=== PATIENT | female | born 1940 | race Caucasian/White ===

== ENCOUNTER → 2016-10-23 | Outpatient (CLI) | payer MEDICARE, BC ==
[~2016-10-23] VITALS: Ht 167.6 cm; Wt 73.0 kg
[~2016-10-23] MED LIST: ALDACTONE 25MG25 M1 PO; ALDACTONE25 MG PO; ASPIRIN 32325 MG/TAB PO; CAPOTEN 12.512.5 MG PO; CARVEDILOL3.125 MG PO; CLARITIN 1010 MG/TAB PO; COREG 6.256.25 MG/TA PO; DIGOXIN0.125 MG PO; EPLERENONE25 MG PO; LASIX 20MG TABL20 MG PO; LASIX20 MG PO; LIDODERM 5% PATC1 EA TP; LISINOPRIL/HCTZ1 TA2 PO; LISINOPRIL5 MG PO; LOVASTATIN10 MG PO; LOVASTATIN20 MG PO; MICRO-K8 MEQ PO; MOTRIN 600600 MG/TAB PO; MOTRIN 800800 MG/TAB PO; NO HOME MEDICATIONS; NORCO 325 MG-51 TAB PO; PREDNISONE 5MG5 MG PO; PRILOSEC10 MG PO; TEGRETOL 1100 MG/TAB PO; TYLENOL 500MG500 MG PO; ZESTRIL10 MG PO
[2016-10-23 09:03] VITALS: BP 145/80; PULSE 63
[2016-10-23 10:57] VITALS: BP 145/76; PULSE 62
== END ==
LOC: COL.RAD 10-21 10:00
DX: M51.9 Unspecified thoracic, thoracolumbar and lumbosacral intervertebral disc disorder (principal)
CPT/HCPCS: J3301

== ENCOUNTER → 2017-12-21 | Outpatient (CLI) | payer MEDICARE, BC | LOC: COL.RAD 07:11 | DX: M46.1 Sacroiliitis, not elsewhere classified (principal) | CPT/HCPCS: G0260; J3301 ==

== ENCOUNTER → 2018-08-04 | Outpatient (CLI) | payer MEDICARE, BC | LOC: COL.RAD 14:22 | DX: M46.1 Sacroiliitis, not elsewhere classified (principal) | CPT/HCPCS: G0260; J3301 ==

== ENCOUNTER → 2018-08-30 | Outpatient (CLI) | payer MEDICARE, BC | LOC: MC.RAD 09:42 | DX: Z12.31 Encounter for screening mammogram for malignant neoplasm of breast (principal) ==

== ENCOUNTER → 2019-06-29 | Outpatient (CLI) | payer MEDICARE, BC | LOC: COL.RAD 11:17 | DX: G50.0 Trigeminal neuralgia (principal); I70.90 Unspecified atherosclerosis ==